=== PATIENT | female | born 1945 ===

== ENCOUNTER → 2022-07-17 | Outpatient (CLI) | payer OTHER ==
[~2022-07-17] MED LIST: ALBU90OI6; ATOR10; B12-FOLIC ACID1 EACH; BACLOFEN5 M1; EUTHYROX50 MCG; HYDCHL25; LIOT5; LORA1SY
[2022-07-17 14:40] LABS: BASOPHILS ABSOLUTE AUTO 0.04 K/mm3 (0.00-0.23); BASOPHILS PERCENT AUTO 1 % (0-2); EOSINOPHILS ABSOLUTE AUTO 0.37 K/mm3 (0.00-0.68); EOSINOPHILS PERCENT AUTO 7 % (0-6); Hematocrit 45.5 % (33.0-51.0); Hemoglobin 15.3 g/dL (11.5-16.0); IMMATURE GRAN PERCENT AUTO 0 % (0-1); LYMPHOCYTES ABSOLUTE AUTO 1.23 K/mm3 (0.84-5.20); LYMPHOCYTES PERCENT AUTO 22 % (21-46); MONOCYTES ABSOLUTE AUTO 0.64 K/mm3 (0.16-1.47); MONOCYTES PERCENT AUTO 11 % (4-13); Mean Corpuscular HGB 30.2 pg (26.0-34.0); Mean Corpuscular HGB Conc 33.6 g/dL (31.5-36.5); Mean Corpuscular Volume 90 fL (80-100); Mean Platelet Volume 10.1 fL (9.1-12.4); NEUTROPHILS ABSOLUTE AUTO 3.36 K/mm3 (1.96-9.15); NEUTROPHILS PERCENT AUTO 60 % (41-73); Platelet Count 191 K/mm3 (150-400); RDW Coefficient Variation 13.2 % (11.7-14.2); RDW Standard Deviation 43.3 fL (35.1-46.3); Red Blood Cell Count 5.07 M/mm3 (3.80-5.20); White Blood Cell Count 5.64 K/mm3 (4.00-11.30)
[2022-07-18 02:16] LABS: Alanine Aminotransfer (ALT/SGP 37 U/L (12-78); Albumin, Blood 4.1 g/dL (3.4-5.0); Albumin/Globulin Ratio 1.6 (0.8-1.8); Alk Phos 64 U/L (50-136); Anion Gap 2 mmol/L (6-16); Aspartate Aminotrans (AST/SGOT 22 U/L (12-37); Bilirubin, Total 1.9 mg/dL (0.1-1.0); Blood Urea Nitrogen 12 mg/dL (8-24); Bun/Creatinine Ratio 14.5 (12.0-20.0); CHOL/HDL RATIO 2.1; CO2, Blood 31 mmol/L (21-32); Calcium, Blood 9.3 mg/dL (8.5-10.1); Chloride, Blood 101 mmol/L (98-108); Cholesterol 194 mg/dL (50-200); Creatinine, Blood 0.83 mg/dL (0.40-1.00); Globulin, Blood 2.5 g/dL (2.2-4.0); Glomerular Filtration Rate 73 (60-); Glucose, Blood 109 mg/dL (70-99); HDL Cholesterol 92 mg/dL (>39); LDL/HDL RATIO 0.7; Low Density Lipoprotein Chol 63 mg/dL (0-110); Potassium, Blood 3.8 mmol/L (3.5-5.5); Sodium, Blood 134 mmol/L (136-145); Total Protein, Blood 6.6 g/dL (6.4-8.2); Triglycerides 195 mg/dL (30-160); Triiodothyronine, Free 2.15 pg/mL (2.18-3.98); Very Low Density Lipoprot Chol 39 mg/dL (6-32)
== END | disposition home or self-care (01) ==
LOC: LAB SHORT 13:02 → LAB 13:02
PROVIDERS: Nurse Practitioner Family
DX: Z13.6 Encounter for screening for cardiovascular disorders (principal); E89.0 Postprocedural hypothyroidism; E66.9 Obesity, unspecified
CPT/HCPCS: 80053; 80061; 84481; 85025

== ENCOUNTER → 2023-04-06 | Outpatient (CLI) | payer OTHER ==
[2023-04-06 21:26] LABS: Bun/Creatinine Ratio 19.2 (12.0-20.0); Creatinine, Blood 0.73 mg/dL (0.40-1.00); Free Thyroxine 1.32 ng/dL (0.70-1.60); Potassium, Blood 4.1 mmol/L (3.5-5.5); Thyroid Stimulating Hormone 0.781 uIU/mL (0.360-4.800); Triiodothyronine, Free 2.24 pg/mL (2.18-3.98)
[2023-04-11 21:11] LABS: HEMOGLOBIN A1C 5.3 % (4.8-5.6)
== END | disposition home or self-care (01) ==
LOC: LAB SHORT 17:25 → LAB 17:25
PROVIDERS: Nurse Practitioner Family
DX: E89.0 Postprocedural hypothyroidism (principal); E53.8 Deficiency of other specified B group vitamins; I10 Essential (primary) hypertension; R73.01 Impaired fasting glucose
CPT/HCPCS: 80048; 82607; 82746; 83036; 84439; 84443; 84481

== ENCOUNTER 2023-05-14 12:02 | Day surgery (SDC) | payer OTHER ==
[~2023-05-14] VITALS: Ht 162.6 cm; Wt 114.2 kg
[2023-05-14 15:28] VITALS: BP 141/76
== END 2023-05-14 15:01 | disposition home or self-care (01) ==
LOC: ORSCSDS 12:02
PROVIDERS: Specialist
PROC: 0DBL8ZX Excision of Transverse Colon, Via Natural or Artificial Opening Endoscopic, Diagnostic (ICD-10-PCS; principal; 2023-05-14 13:30)
DX: Z12.11 Encounter for screening for malignant neoplasm of colon (principal); D12.3 Benign neoplasm of transverse colon; K64.8 Other hemorrhoids; K57.30 Diverticulosis of large intestine without perforation or abscess without bleeding; Z86.010 Personal history of colon polyps; E78.5 Hyperlipidemia, unspecified; E03.9 Hypothyroidism, unspecified; E66.01 Morbid (severe) obesity due to excess calories; Z68.41 Body mass index [BMI] 40.0-44.9, adult; Z79.899 Other long term (current) drug therapy
CPT/HCPCS: 88305; J2704; J7120

== ENCOUNTER → 2023-09-12 | Outpatient (CLI) | payer OTHER | LOC: LAB 14:48 → LAB SHORT 14:48 | DX: L72.0 Epidermal cyst (principal) ==

== ENCOUNTER → 2024-08-06 | Outpatient (CLI) | payer OTHER ==
[2024-08-06 17:19] LABS: Free Thyroxine 1.37 ng/dL (0.70-1.60)
[2024-08-06 17:25] LABS: Bun/Creatinine Ratio 16.1 (12.0-20.0); Calcium, Blood 9.4 mg/dL (8.5-10.1); Creatinine, Blood 0.74 mg/dL (0.40-1.00); Potassium, Blood 3.7 mmol/L (3.5-5.5); Thyroid Stimulating Hormone 4.62 uIU/mL (0.360-4.800); Triiodothyronine, Free 2.3 pg/mL (2.18-3.98)
== END ==
LOC: LAB 13:56 → LAB SHORT 13:56
PROVIDERS: Nurse Practitioner Family
DX: E89.0 Postprocedural hypothyroidism (principal); R60.9 Edema, unspecified
CPT/HCPCS: 80048; 84439; 84443; 84481